=== PATIENT | male | born 1955 | race Caucasian/White ===

== ENCOUNTER 2021-04-25 09:00 | Observation (INO) ==
[2021-04-25 10:25] LABS: Basophils # 0.1 10*3/uL (0.0-0.2); Basophils % 0.5 % (0.0-0.8); Eosinophils # 0.1 10*3/uL (0.0-0.87); Eosinophils % 0.8 % (0.00-10.9); Hematocrit 37.2 VOL% (42.0-52.0); Hemoglobin 12.1 GM/DL (14.0-18.0); Immature Granulocytes % 0.8 %; Immature Granulocytes Absolute 0.11 #; Lymphocytes # 1.1 10*3/uL (1.4-4.0); Lymphocytes % 7.5 % (21.2-54.2); Mean Corpuscular HGB Conc 32.5 GM/DL (32-36); Mean Corpuscular Volume 85.5 FL (87-102); Mean Platelet Volume 9.5 FL (9.6-12.0); Neutrophils % 84.4 % (38.7-73.9); Platelet Count 373 T/CUMM (130-400); Red Blood Count 4.35 MC/CUMM (3.8-5.5); White Blood Count 14.3 T/CUMM (4-12)
[2021-04-25 10:53] LABS: Albumin 2.3 G/DL (3.4-5.0); Bilirubin,Total 0.4 MG/DL (0.20-1.00); Calcium 11.9 MG/DL (8.5-10.1); Potassium 3.3 MMOL/L (3.5-5.1); Total Protein 7.3 G/DL (6.4-8.2)
[2021-04-25] MEDS ORDERED: SODIUM CHLORIDE 0.9% 1,000 ML IV STA (11:16)
[2021-04-25 11:33] LABS: Sedimentation Rate-Westergren 94 MM/HR (0-20)
[2021-04-25] MEDS ORDERED: DEXTROSE 50% 25 GM/50 ML VIAL IV PRN (13:21)
[2021-04-25] MEDS ORDERED: ONDANSETRON 4 MG/2 ML VIAL IV PRN (13:21)
[2021-04-25] MEDS ORDERED: DOCUSATE SODIUM 100 MG CAPSULE PO PRN (13:21)
[2021-04-25] MEDS ORDERED: GLUCAGON 1 MG VIAL IM PRN (13:21)
[2021-04-25] MEDS ORDERED: POTASSIUM CHLORIDE 20 MEQ TABLET PO PRN (13:27)
[2021-04-25 14:22] LABS: Cyclic Citrull Peptide Interp Negative
[2021-04-25] MEDS: LACTATED RINGERS 1,000 ML IV SCH ×2 (14:45→23:50)
[2021-04-25] MEDS: PANTOPRAZOLE 40 MG TABLET PO SCH (14:46)
[2021-04-25 16:44] LABS: Parathyroid Hormone Intact 214.1 PG/ML (18.4-80.1)
[2021-04-25 17:07] LABS: Hepatitis B Core IgM Quant 0.11 Index; Hepatitis B Surface Ag Quant < 0.10 Index; Hepatitis B Surface Ag Result Non-Reactive (NonReactive); Hepatitis C Virus Ab Quant 0.07 Index; Hepatitis C Virus Ab Result Non-Reactive (NonReactive)
[2021-04-25 18:28] LABS: Bilirubin,Urine Negative (Negative); Blood, Urine Small mg/dL (Negative); Glucose,Urine (UA) Negative (Negative); Hyaline Casts,Urine 3 /LPF (0-3); Ketones,Urine Negative (Negative); Mucus,Urine Occasional /LPF (Occasional); Nitrite,Urine Negative (Negative); Protein,Urine 100 MG/DL; RBC,Urine 3 /HPF (0-4); Urine Appearance CLEAR (Clear); Urine Color Yellow (Yellow)
[2021-04-25 21:41] LABS: Rheumatoid Factor 102 IU/ML (<15)
[2021-04-26 06:36] LABS: Basophils # 0.1 10*3/uL (0.0-0.2); Basophils % 0.7 % (0.0-0.8); Eosinophils # 0.2 10*3/uL (0.0-0.87); Eosinophils % 2.1 % (0.00-10.9); Hematocrit 32.5 VOL% (42.0-52.0); Immature Granulocytes % 1.3 %; Immature Granulocytes Absolute 0.14 #; Lymphocytes # 1.6 10*3/uL (1.4-4.0); Lymphocytes % 14.8 % (21.2-54.2); Mean Corpuscular HGB Conc 31.1 GM/DL (32-36); Mean Corpuscular Volume 85.5 FL (87-102); Mean Platelet Volume 9.7 FL (9.6-12.0); Monocytes % 7.7 % (1.7-12.7); Neutrophils % 73.4 % (38.7-73.9); Platelet Count 322 T/CUMM (130-400); Red Cell Distribution Width 14.1 % (9.3-17.3); White Blood Count 10.7 T/CUMM (4-12)
[2021-04-26 06:37] LABS: Hemoglobin 10.1 GM/DL (14.0-18.0)
[2021-04-26 06:50] LABS: Albumin 1.9 G/DL (3.4-5.0); Bilirubin,Total 0.6 MG/DL (0.20-1.00); Calcium 10.7 MG/DL (8.5-10.1); Osmolality,Calculated 284.3 MOS/KG (273-304); Potassium 3.3 MMOL/L (3.5-5.1); Total Protein 6.1 G/DL (6.4-8.2)
[2021-04-26 08:26] VITALS: BP 117/56
[2021-04-26] MEDS: PANTOPRAZOLE 40 MG TABLET PO SCH (08:44)
== END 2021-04-26 12:27 | disposition home or self-care (01) ==
LOC: N.ED 09:00 → N.EDINP 09:00 → SUATTDRO 13:21 → N.5E 14:38
PROVIDERS: ADMIT Internal Medicine; ATTEND Internal Medicine